=== PATIENT | male | born 1990 | race American Indian/Alaskan Native ===

== ENCOUNTER 2017-09-26 19:08 | Emergency (ER) | payer OTHER ==
--- NOTE | 2017-09-26 19:26 | Emergency Department Report ---
Upper Extremity - HPI Chief Complaint: Shoulder Injury Stated Complaint: DISLOCATED SHOULDER Time Seen by Provider: 09/26/17 19:25 Upper Extremity: Left Shoulder Occurred When: Today Mechanism: Fall Severity: moderate Symptoms: Yes Pain with Movement, Yes Deformity, Yes Limited Range of Movement, Yes Numbness, Yes Weakness, No Swelling, No Bruising/Ecchymosis, No Laceration or Abrasion Other History: This is a pleasant 27-year-old male who was walking down a flight of steps in the rain and slipped and fell at work. He has had a shoulder dislocation in the past. Today it seems that his left shoulder is not dislocated. He did go to an urgent care and they did take an x-ray but they told him that they could not do a shoulder reduction. Therefore they sent him to the emergency room. He denies any significant past medical history, he admits to being a cannabis smoker (not nicotine), no alcohol use. ED Review of Systems ROS: Stated complaint: DISLOCATED SHOULDER Other details as noted in HPI Comment: All other systems reviewed and negative Constitutional: no symptoms reported Eyes: as per HPI ENT: as per HPI Respiratory: no symptoms reported Cardiovascular: as per HPI Endocrine: no symptoms reported Gastrointestinal: as per HPI Genitourinary: as per HPI Musculoskeletal: as per HPI Skin: as per HPI Neurological: as per HPI Psychiatric: as per HPI Hematological/Lymphatic: as per HPI ED Past Medical Hx - Past Medical History Previous Medical History?: No - Surgical History Past Surgical History?: No - Social History Smoking Status: Current Every Day Smoker Substance Use Type: None - Medications Home Medications: Home Medications Medication Instructions Recorded Confirmed Last Taken Type Cyclobenzaprine [Flexeril] 10 mg PO TID PRN #30 tablet 09/26/17 Unknown Rx Ibuprofen 800 mg PO TID PRN #30 tablet 09/26/17 Unknown Rx Upper Extremity Exam - Exam General: Vital signs noted. No distress. Alert and acting appropriately. Current auscultation all lung hinton, regular rate and rhythm, nontender nondistended positive bowel sounds. Upper extremity exam as noted. Head and Torso: No HEENT Abnormality, No Neck Tenderness, No Chest/Lungs Abnormality, No Abdominal Tenderness, No Back Tenderness Shoulder Exam: Yes Shoulder Tenderness (left), Yes Shoulder Deformity (left), Yes AC Joint Tenderness (left), No Clavicle Tenderness (left), No Normal Range of Motion in Shoulder (left) Arm Exam: No Arm/Humerus Tenderness, No Arm Deformity Elbow: Yes Normal Range of Motion in Elbow, No Elbow Tenderness, No Elbow Deformity Forearm: No Forearm Tenderness, No Forearm Deformity, No Pain with Pronation, No Pain with Supination Wrist: Yes Normal ROM in Wrist, No Wrist Tenderness, No Wrist Deformity, No Snuffbox Tenderness, No Pain with Axial Thumb Compression Hand: Yes Normal ROM in Digit(s), No Hand Tenderness, No Hand Deformity, No Digit Tenderness, No Digit(s) Deformity, No Tendon Dysfunction CMS Exam: Yes Normal Distal Pulses, Yes Normal Capillary Refill, Yes Normal Distal Sensation, No Broken Skin ED Course Vital Signs 09/26/17 19:11 Temperature 98.9 F Pulse Rate 70 Respiratory 16 Rate Blood Pressure 152/86 O2 Sat by Pulse 100 Oximetry - Reevaluation(s) Reevaluation #1: 09/26/17 19:40 We will go ahead and get an x-ray of the patient's left shoulder. At this time he will probably need a shoulder reduction. I'll go ahead and order for an IV and some IV fluids and we will use etomidate. - Orthopedic Joint Reduction Joint #1 Consent Obtained: verbal consent Time Out Performed: Yes Side: left Joint Reduction Location: shoulder Analgesia: moderate sedation Amount of Anesthetic Used (mls): 20 (etomidate) Shoulder Technique Used (if applicable): traction/counter-traction Post-Reduction Neuro Exam: intact Post-Reduction Vascular Exam: intact Post Reduction X-Ray Obtained: Yes Post Reduction X-Ray Results: reduced Splint Applied: Yes Patient Tolerated Procedure: well, no complications ED Medical Decision Making - Medical Decision Making Patient tolerated the procedure well. Discharged accordingly. Critical care attestation.: If time is entered above; I have spent that time in minutes in the direct care of this critically ill patient, excluding procedure time. ED Disposition Clinical Impression: Dislocation of shoulder, inferior, left, closed Qualifiers: Encounter type: initial encounter Qualified Code(s): S43.035A - Inferior dislocation of left humerus, initial encounter Disposition: TO HOME OR SELFCARE Is pt being admited?: No Does the pt Need Aspirin: No Condition: Stable Instructions: Shoulder Dislocation (ED) Additional Instructions: rest, fluids, watch for worsening, new symptoms, wear your shoulder immobilizer , follow up with your PMD or orthopedic doctor of choice, take medications as instructed, return as needed. Prescriptions: Cyclobenzaprine [Flexeril] 10 mg PO TID PRN #30 tablet PRN Reason: Muscle Spasm Ibuprofen 800 mg PO TID PRN #30 tablet PRN Reason: Pain
[2017-09-26] MEDS ORDERED: NACL 0.9% 1000 ML 1,000 ML IV ONE (19:40)
[2017-09-26] MEDS ORDERED: MORPHINE IV ONE (19:41)
[2017-09-26] MEDS ORDERED: ZOFRAN IV ONE (19:41)
[2017-09-26] MEDS ORDERED: MORPHINE ONE (20:05)
[2017-09-26] MEDS ORDERED: AMIDATE IV ONE (20:32)
--- NOTE | 2017-09-26 21:25 | XRay Report ---
FINAL REPORT EXAM: XR SHOULDER 2+V LT HISTORY: dislocation TECHNIQUE: AP and Y views of the left shoulder PRIORS: None. FINDINGS: There is an acute anterior dislocation of the left humeral head. There is no evidence of acute fracture. Joint spaces are maintained and bony mineralization is normal. IMPRESSION: Acute anterior dislocation left humeral head. No evidence for fracture.
[2017-09-26 22:11] VITALS: BP 138/78
--- NOTE | 2017-09-26 22:38 | XRay Report ---
FINAL REPORT EXAM: XR SHOULDER 2+V LT HISTORY: POST REDUCTION FILM TECHNIQUE: Two views left shoulder Comparison: Earlier same evening FINDINGS: There has been interval reduction of the previously identified anterior dislocation of the left humeral head. Glenohumeral space is now normal and alignment. There is no fracture or dislocation identified. The glenoid rim is grossly unremarkable. IMPRESSION: Status post reduction left glenohumeral dislocation. Normal anatomic alignment on the current exam.
== END 2017-09-26 22:06 | disposition home or self-care (01) ==
LOC: ED 19:08
DX: S43.035A Inferior dislocation of left humerus, initial encounter (principal); F17.200 Nicotine dependence, unspecified, uncomplicated; W10.8XXA Fall (on) (from) other stairs and steps, initial encounter; Y93.89 Activity, other specified; Y92.89 Other specified places as the place of occurrence of the external cause; Y99.8 Other external cause status
CPT/HCPCS: 23650; 73030; 96361; 96374; 96375; 99283; J2270; J2405; J7030